=== PATIENT | female | born 1945 | race Caucasian/White ===

== ENCOUNTER 2023-11-30 11:25 | Outpatient (CLI) | payer OTHER, SELFPAY | END 2023-11-30 11:26 | disposition home or self-care (01) | LOC: AMB 12-04 00:56 | PROVIDERS: PCP Family Medicine; Visit Provider Student in an Organized Health Care Education/Training Program | DX: J45.901 Unspecified asthma with (acute) exacerbation (principal) | CPT/HCPCS: A0425; A0427 ==

== ENCOUNTER 2023-11-30 12:03 | Emergency (ER) | payer OTHER, SELFPAY ==
[2023-11-30] VITALS (12 sets, daily range): BP systolic 138–173; BP diastolic 78–111; PULSE 70–93; RESP 14–20; TEMP 36.4; O2SAT 94–96; BMI 22.9
--- NOTE | 2023-11-30 12:29 | XR_ITS ---
Patient: EMILY SHEEHAN Facility:?[facility] Patient ID:?[id number] Site Patient ID:?[id number]. Site :?[id number] Study:?XRay-Chest 2 VIEW CHEST-11/30/2023 12:57:32 PM Ordering Physician:KATIE Final Report: INDICATION: Asthma. TECHNIQUE: Chest 2 views. COMPARISON: None. FINDINGS: Cardiovascular and mediastinum: Cardiomediastinal silhouette is within normal limits Lungs and pleural spaces: Overlying soft tissues demonstrate lucencies along the lateral margins of the bilateral lungs. Lungs are clear. No sign of pleural effusion. No pneumothorax. Bones and soft tissues: No significant findings. IMPRESSION: No acute or significant findings. Dictated by Giselle Thao MD @ 11/30/2023 1:06:12 PM Signed by:?Giselle Thao MD @11/30/2023 1:06:12 PM (Electronic Signature)
[2023-11-30 12:48] LABS: Basophils Absolute Auto 0.04 K/uL (0.00-0.30); Basophils Percent Auto 0.7 % (0.0-3.0); Eosinophils Percent Auto 3.3 % (0.0-7.0); Hematocrit 40.2 % (33.0-51.0); Hemoglobin* 12.9 gm/dL (12.0-16.0); Lymphocytes Absolute Auto 1.95 K/uL (0.90-2.90); Lymphocytes Percent Auto 31.8 % (20-44); Mean Corpuscular HGB Conc 32 gm/dL (32-36); Mean Corpuscular Hemoglobin 30 pg (26-34); Mean Corpuscular Volume 92 fL (80-100); Monocytes Percent Auto 8.5 % (0.0-11.0); Neutrophils Absolute Auto 3.42 K/uL (1.7-7.0); Neutrophils Percent Auto 55.7 % (42.0-72.0); Platelet Count* 396 K/uL (140-440); RDW Coefficient of Variation % 13.9 % (11.5-15.5); Red Blood Count 4.38 m/uL (4.00-5.20); White Blood Count* 6.13 K/uL (4.50-11.00)
[2023-11-30 13:04] LABS: Chloride* 107 mmol/L (96-114); Sodium* 139 mmol/L (135-149)
[2023-11-30 13:07] LABS: Anion Gap 4 mEq/L (7-15); Blood Urea Nitrogen* 18 mg/dL (7-30); Carbon Dioxide* 28 mmol/L (20-32); Creatinine* 0.7 mg/dL (0.5-1.5); Est. Creatinine Clearance* 37.85; Estimated Glomerular Filt Rate 90 ml/min; Glucose* 82 mg/dL (60-115)
[2023-11-30 13:12] LABS: Slide Review Reflex No
--- NOTE | 2023-11-30 13:35 | ED.ASTHMA ---
HPI - Asthma General Date Seen: 11/30/23 Chief Complaint: Asthma Stated Complaint: asthma Time Seen by Provider: 11/30/23 12:04 Source: patient Mode of arrival: EMS Limitations: no limitations History of Present Illness HPI Narrative: Patient is a 78-year-old female presenting to the emergency department for shortness of breath. She states she went to her daughter cells prefer got her nebulizer at home and started feeling very short of breath. Since she did not have a machine with her she cannot treated so EMS was called. They state when they arrived she has had 86% on room air and was very wheezy. They gave her 1 DuoNeb and now she is satting 95% on room air. The patient states she feels back to normal. She states this feels just like previous asthma exacerbations. No history of smoking. Currently states she does not feel short of breath at all. Denies fevers, chills, chest pain, weakness, numbness, headache, vision changes, diarrhea, constipation. No other concerns noted at this time. Related Data Home Medications Medication Instructions Recorded Confirmed levothyroxine 100 mcg tablet mcg PO 11/30/23 sertraline 50 mg tablet mg PO 11/30/23 Previous Rx's Medication Instructions Recorded albuterol sulfate 90 mcg/actuation 2 puff inhalation QID PRN 11/30/23 aerosol inhaler shortness of breath or wheezing #8.5 grams Allergies Allergy/AdvReac Type Severity Reaction Status Date / Time No Known Drug Allergies Allergy Verified 11/30/23 12:13 Review of Systems Status of ROS Reports: 10 or more systems reviewed and unremarkable except as noted in History and below PFSH PFS Social History How often do you have a drink containing alcohol: never AUDIT-C Alcohol total score: 0 Non-prescribed substance use: denies use Exam Narrative: Exam Narrative: Const: Well-nourished, Well-developed, in no distress Eyes: PERRL, no conjunctival injection, and symmetrical lids HENT: Atraumatic external nose and ears. Moist mucous membranes. Neck: Symmetric, trachea midline, No thyromegaly. CVS: RRR, No murmurs or gallops. Peripheral pulses 2+ and equal in all extremities RESP: Unlabored respiratory effort. Clear to auscultation bilaterally. GI: Nontender/Nondistended, No rebound or guarding. MSK:Extremities w/o deformity, Normal Active ROM Skin: Warm, Dry. No rashes or lesions. Neuro: Normal Muscle tone, No focal neurological deficits. Psych: Awake, Alert, & Oriented x3. Appropriate mood and affect. Const: Vital Signs, click to edit/add: Vital Signs - 24 hr 11/30/23 12:09 11/30/23 12:10 11/30/23 12:32 Temperature 97.6 F Pulse Rate 88 84 Pulse Rate [Left P ulse Oximeter] 93 Respiratory Rate 20 16 18 Blood Pressure 172/111 H 146/93 H Blood Pressure [Le ft Upper Arm] 172/111 H Pulse Oximetry 95 96 94 Oxygen Delivery Me thod Room Air 11/30/23 13:02 11/30/23 13:31 11/30/23 14:01 Temperature Pulse Rate 80 79 72 Pulse Rate [Left P ulse Oximeter] Respiratory Rate 16 16 16 Blood Pressure 153/104 H 150/96 H 138/78 Blood Pressure [Le ft Upper Arm] Pulse Oximetry 94 94 94 Oxygen Delivery Me thod 11/30/23 14:32 11/30/23 15:02 11/30/23 15:32 Temperature Pulse Rate 73 73 77 Pulse Rate [Left P ulse Oximeter] Respiratory Rate 16 14 14 Blood Pressure 161/87 H 171/89 H 173/105 H Blood Pressure [Le ft Upper Arm] Pulse Oximetry 95 95 95 Oxygen Delivery Me thod 11/30/23 16:02 11/30/23 16:32 Temperature Pulse Rate 70 75 Pulse Rate [Left P ulse Oximeter] Respiratory Rate 14 16 Blood Pressure 170/100 H 170/95 H Blood Pressure [Le ft Upper Arm] Pulse Oximetry 96 95 Oxygen Delivery Me thod Course Vital Signs Vital signs: Initial Vital Signs Temperature 97.6 F 11/30/23 12:09 Temperature Source Temporal Artery Scan 11/30/23 12:09 Pulse Rate 93 11/30/23 12:09 Respiratory Rate 20 11/30/23 12:09 Respiratory Effort Normal, Spontaneous, Non-Labored 11/30/23 12:09 Respiratory Depth Normal 11/30/23 12:09 Respiratory Pattern Normal 11/30/23 12:09 Blood Pressure 172/111 H 11/30/23 12:09 Blood Pressure Mean 131 H 11/30/23 12:09 Blood Pressure Position Sitting 11/30/23 12:09 Pulse Oximetry 95 11/30/23 12:09 Oxygen Delivery Method Room Air 11/30/23 12:09 Vital Signs Temperature 97.6 F 11/30/23 12:09 Pulse Rate 93 11/30/23 12:09 Respiratory Rate 20 11/30/23 12:09 Blood Pressure 172/111 H 11/30/23 12:09 Pulse Oximetry 95 11/30/23 12:09 Oxygen Delivery Method Room Air 11/30/23 12:09 Temperature 97.6 F 11/30/23 12:09 Pulse Rate 75 11/30/23 16:32 Respiratory Rate 16 11/30/23 16:32 Blood Pressure 170/95 H 11/30/23 16:32 Pulse Oximetry 95 11/30/23 16:32 Oxygen Delivery Method Room Air 11/30/23 12:09 MDM - Asthma MDM Narrative Medical decision making narrative: Patient is a 78-year-old female brought in by EMS for shortness of breath. Symptoms have now fully resolved since she received her nebulizing treatment. Lungs are now clear and she is satting 95% on room air. Considering her age though I will do some other workup to see him back in find anything that exacerbated this asthma. Will do chest x-ray, CBC, BMP, COVID/flu/RSV, EKG, troponin Chest x-ray reviewed by myself the radiologist shows no concerning abnormalities. CBC and BMP showed no concerning abnormalities. COVID/flu/RSV is negative. EKG showed no concerning findings. Chest x-ray reviewed with helped with the radiologist shows no concerning findings. Initial troponin came back at 0.10. This will very likely be demand ischemia of her hypoxia but we will repeated. She is currently asymptomatic. Repeat troponin came back at 0.15. Patient and family are really wanting to go home when I did want to speak to Cardiology 1st. I explained the situation and how symptoms fully resolved after the breathing treatment and patient is currently symptom free at never had chest pain. Also told the EKG looked normal and had no concerning findings. Do that Dr. Ricks of [facility] feels comfortable with us discharging her home with close follow-up with her primary care provider. Patient will be discharged at this time. I will give her prescription for albuterol inhaler Lab Data Labs: Lab Results 11/30/23 11/30/23 11/30/23 Range/Units 12:35 12:42 14:06 WBC 6.13 (4.50-11.00) K/uL RBC 4.38 (4.00-5.20) m/uL Hgb 12.9 (12.0-16.0) gm/dL Hct 40.2 (33.0-51.0) % MCV 92 (80-100) fL MCH 30 (26-34) pg MCHC 32 (32-36) gm/dL RDW Coeff of Bassem 13.9 (11.5-15.5) % Plt Count 396 (140-440) K/uL Neut % (Auto) 55.7 (42.0-72.0) % Lymph % (Auto) 31.8 (20-44) % [place] % (Auto) 8.5 (0.0-11.0) % Eos % (Auto) 3.3 (0.0-7.0) % Baso % (Auto) 0.7 (0.0-3.0) % Neut # (Auto) 3.42 (1.7-7.0) K/uL Lymph # (Auto) 1.95 (0.90-2.90) K/uL [place] # (Auto) 0.50 (0.00-0.90) K/UL Eos # (Auto) 0.20 (0.00-0.50) K/uL Baso # (Auto) 0.04 (0.00-0.30) K/uL Abs Immat Gran (auto) 0.00 (0.00-0.30) K/uL Imm/Tot Granulo (auto) 0.0 % Sodium 139 (135-149) mmol/L Potassium 4.0 (3.6-5.1) mmol/L Chloride 107 (96-114) mmol/L Carbon Dioxide 28 (20-32) mmol/L Anion Gap 4 L (7-15) mEq/L BUN 18 (7-30) mg/dL Creatinine 0.7 (0.5-1.5) mg/dL Estimated Creat Clear 37.85 Estimated GFR 90 ml/min Glucose 82 (60-115) mg/dL Calcium 9.0 (8.4-10.6) mg/dL Troponin I 0.10 H* (0.01-0.04) ng/mL Triglycerides 120 (40-149) mg/dL SARS-CoV-2 (PCR) Negative SARS-CoV-2 (Negative) Influenza Type A (PCR) Negative PCR FLU A (Negative) Influenza Type B (PCR) Negative PCR FLU B (Negative) RSV (PCR) Negative PCR RSV (Negative) Lab Acknowledgement POC Troponin I 0.08 H (0.01-0.04) ng/ml 11/30/23 11/30/23 Range/Units 14:37 15:42 WBC (4.50-11.00) K/uL RBC (4.00-5.20) m/uL Hgb (12.0-16.0) gm/dL Hct (33.0-51.0) % MCV (80-100) fL MCH (26-34) pg MCHC (32-36) gm/dL RDW Coeff of Bassem (11.5-15.5) % Plt Count (140-440) K/uL Neut % (Auto) (42.0-72.0) % Lymph % (Auto) (20-44) % [place] % (Auto) (0.0-11.0) % Eos % (Auto) (0.0-7.0) % Baso % (Auto) (0.0-3.0) % Neut # (Auto) (1.7-7.0) K/uL Lymph # (Auto) (0.90-2.90) K/uL [place] # (Auto) (0.00-0.90) K/UL Eos # (Auto) (0.00-0.50) K/uL Baso # (Auto) (0.00-0.30) K/uL Abs Immat Gran (auto) (0.00-0.30) K/uL Imm/Tot Granulo (auto) % Sodium (135-149) mmol/L Potassium (3.6-5.1) mmol/L Chloride (96-114) mmol/L Carbon Dioxide (20-32) mmol/L Anion Gap (7-15) mEq/L BUN (7-30) mg/dL Creatinine (0.5-1.5) mg/dL Estimated Creat Clear Estimated GFR ml/min Glucose (60-115) mg/dL Calcium (8.4-10.6) mg/dL Troponin I 0.15 H* (0.01-0.04) ng/mL Triglycerides (40-149) mg/dL SARS-CoV-2 (PCR) (Negative) Influenza Type A (PCR) (Negative) Influenza Type B (PCR) (Negative) RSV (PCR) (Negative) Lab Acknowledgement Test Added POC Troponin I (0.01-0.04) ng/ml Imaging Data Chest x-ray: Attestation: I have reviewed the pertinent imaging results. Radiologist's impression: No acute or significant findings. Dictated by Giselle Thao MD @ 11/30/2023 1:06:12 PM ECG Data Attestation: I personally reviewed and interpreted this ECG as follows: Prior ECG tracings: not available for review Interpretation: Normal sinus rhythm with a rate of 68 beats per minute, normal intervals, normal axis, no ST or T-wave abnormalities. Discharge Plan Discharge Clinical Impression: Asthma with acute exacerbation Qualifiers: Asthma severity: unspecified severity Asthma persistence: unspecified Qualified Code(s): J45.901 - Unspecified asthma with (acute) exacerbation Patient Disposition: Home, Self-Care Condition: Stable Instructions: Asthma (DC) Additional Instructions: You do have elevated troponins which could be a sign of heart disease, likely exacerbated from the asthma exacerbation. I recommend moving up your appointment with your primary care provider to as soon as possible. At that time talk to them in if they think you need a Cardiology referral. Prescriptions: New albuterol sulfate 90 mcg/actuation HFA aerosol inhaler 2 puff inhalation QID PRN (Reason: shortness of breath or wheezing) Qty: 8.5 0RF No Action levothyroxine 100 mcg tablet PO sertraline 50 mg tablet PO Follow Up/Referrals: Javi Castro MD [Primary Care Provider] - Stand Alone Forms: My 1% Info Instructions
[2023-11-30 13:47] LABS: PCR FLU A Negative PCR FLU A (Negative); PCR FLU B Negative PCR FLU B (Negative); PCR RSV Negative PCR RSV (Negative); SARS PCR* Negative SARS-CoV-2 (Negative)
[2023-11-30 14:55] LABS: Troponin, Point-of-Care* 0.08 ng/ml (0.01-0.04)
[2023-11-30 15:07] LABS: Triglycerides* 120 mg/dL (40-149)
[2023-11-30 16:24] LABS: Troponin I* 0.15 ng/mL (0.01-0.04)
== END 2023-11-30 17:01 | disposition home or self-care (01) ==
PROVIDERS: Emergency Provider Student in an Organized Health Care Education/Training Program; PCP Family Medicine
DX: J45.901 Unspecified asthma with (acute) exacerbation (principal)
CPT/HCPCS: 36415; 71046; 80048; 84478; 84484; 85025; 87631; 93005; 99283; 99284; 99285